=== PATIENT | female | born 1975 | race African-American/Black ===

== ENCOUNTER 2017-05-16 21:16 | Observation (INO) ==
--- NOTE | 2017-05-16 21:49 | Emergency Department Note ---
Arrival - Arrival Chief Complaint: Non-Specific Stated Complaint: JAW LOCKING UP/HEADACHE/CHEST TIGHTING ED Nursing Triage Note: Patient to triage with c/o "FORMAN and jaw locking up" that started around 1900. Patient also was having some chest tightness around 1830 and now upon arrival to triage patient is having left groin pain. Patient spend today mopping her house. Denies N/V/D or diaphoresis. Mode of Arrival: Ambulatory Time Seen by Provider: 05/16/17 21:31 - History of Present Illness HPI Narrative: This is a 42-year-old otherwise healthy female of descent who has been working mopping her floor throughout the day and presents with chest tightness which started approximately 630 this evening and episodes of jaw tightness. Her grandparents had heart disease and of myocardial infarction but her parents have not had any similar problems. The patient has had a hysterectomy. She denies any nausea vomiting nor diaphoresis. There is no shortness of breath. She has had no syncope hemoptysis nor palpitations. Date of Last Menstrual Period: [facility] Allergies/Adverse Reactions: Allergies Allergy/AdvReac Type Severity Reaction Status Date / Time hydrocodone [From Lortab] Allergy ITCHING Verified 05/16/17 21:27 Home Medications: Home Medications Medication Instructions Recorded Confirmed Type methylPREDNISolone DOSEPAK [Medrol 1 tablet PO DAILY 12/19/15 12/19/15 History Dosepak] Review of System - Review of System Constitutional: Absent: diaphoresis, fever, weakness Eyes: Absent: redness, vision change Head/Ears/Nose/Throat: Absent: earache, epistaxis Respiratory: Absent: cough, respiratory distress, wheezing Cardiovascular: Absent: dyspnea on exertion, orthopnea, syncope Gastrointestinal: Absent: nausea, vomiting, diarrhea Genitourinary female: Absent: dyspareunia, frequency Musculoskeletal: Absent: arthralgia, joint swelling Skin: Absent: lesions, change in hair/nails Neurological: Absent: headache, weakness Psychiatric: Absent: anxiety, depression Endocrine: Absent: heat intolerance, polydipsia Hematological/Lymphatic: Absent: easy bruising, lymphadenopathy Allergic/Immunologic: Absent: urticaria Medical,Surgical,& Family Hx - Surgical History Reproductive Surgeries: Surgical HX of;: Hysterectomy - Social History Smoking Status: Never smoker Frequency of Alcohol Use: None Type of Drug Use: None Exam Vital Signs: Vital Signs Temperature 97.5 F L 05/16/17 21:21 Pulse Rate 83 05/16/17 21:21 Respiratory Rate 18 05/16/17 21:21 Blood Pressure 132/86 05/16/17 21:21 O2 Sat by Pulse Oximetry 100 05/16/17 21:21 - General General appearance: alert - Eye Eye exam: Present: normal appearance, PERRL - ENT ENT exam: Present: normal exam - Neck Neck exam: Present: normal inspection - Chest Chest inspection: Present: normal inspection - Respiratory Respiratory exam: Present: normal lung sounds bilaterally - Cardiovascular Cardiovascular exam: Present: regular rate, normal rhythm - Abdominal Exam Abdominal exam: Present: soft, normal bowel sounds - Extremities Exam Extremities exam: Present: normal inspection - Back Exam Back exam: Present: normal inspection, full ROM. Absent: CVA tenderness (R), CVA tenderness (L) - Neurological Exam Neurological exam: Present: alert, oriented X3, CN II-XII intact - Psychiatric Psychiatric exam: Present: normal affect, normal mood - Skin Skin exam: Present: warm, dry
[2017-05-16] MEDS ORDERED: KETOROLAC 30 MG/1 ML VIAL IV STA (21:50)
[2017-05-16] MEDS ORDERED: KETOROLAC 30 MG/1 ML VIAL ONE (22:17)
[2017-05-16 22:26] LABS: Eosinophils # 0.1 10*3/uL (0.0-0.87); Eosinophils % 1.5 % (0.00-10.9); Hematocrit 27.2 VOL% (35.7-47.0); Hemoglobin 9.1 GM/DL (12.0-16.0); Immature Granulocytes % 0.2 %; Immature Granulocytes Absolute 0.01 #; Lymphocytes # 1.5 10*3/uL (1.4-4.0); Lymphocytes % 37.1 % (21.3-54.2); Mean Corpuscular HGB Conc 33.5 GM/DL (32-36); Mean Corpuscular Hemoglobin 27 PG (27-34); Mean Platelet Volume 10.3 FL (9.6-12.0); Monocytes # 0.3 10*3/uL (0.11-0.8); Monocytes % 8.4 % (1.7-12.7); Neutrophils # 2.2 10*3/uL (1.4-7.4); Neutrophils % 52.8 % (38.7-73.9); Platelet Count 215 T/CUMM (130-400); Red Blood Count 3.36 MC/CUMM (3.8-5.5); Red Cell Distribution Width 14.2 % (9.3-17.3); White Blood Count 4.1 T/CUMM (4-12)
[2017-05-16 22:48] LABS: Alanine Aminotransferase 17 U/L (13-56); Albumin 3.6 G/DL (3.4-5.0); Alkaline Phosphatase 53 U/L (45-117); Aspartate Amino Transferase 18 U/L (0-37); Bilirubin,Total < 0.39 MG/DL (0.2-1.0); Blood Urea Nitrogen 14 MG/DL (7-18); Calcium 8.6 MG/DL (8.5-10.1); Glucose 112 MG/DL (74-106); Osmolality,Calculated 282.3 MOS/KG (273-304); Potassium 3.2 MMOL/L (3.5-5.1); Sodium 141 MMOL/L (136-145); Total Protein 7.2 G/DL (6.4-8.3)
--- NOTE | 2017-05-17 | Hospitalist History & Physical ---
Assessment and Plan (1) Elevated troponin Status: Acute Assessment and plan: No obvious explanation for this, worth ruling out ACS with serial troponin and telemetry monitoring. Hydrate with IV fluids Current Visit: Yes (2) Chest pain Status: Acute Assessment and plan: Favored that this represents a panic attack, she has low pretest probability but the elevated troponin without an alternative explanation suggest that trending is indicated Current Visit: Yes (3) Jaw pain Status: Acute Assessment and plan: In the context of hypokalemia and this could be muscle spasm, replace potassium Current Visit: Yes (4) Hypokalemia Status: Acute Assessment and plan: Replace potassium orally Current Visit: Yes History of Present Illness Chief complaint: Chest pain History of present illness: Ms. Guajardo is a 42 year old female with no significant past medical history the presented with a chief complaint of chest pain. Onset sudden. Duration 5 hours. Location central chest. Quality "squeezing." Associated with shortness of breath, panicked feeling, bilateral jaw pain and headache. No associated diaphoresis, nausea. She also endorsed dizziness without syncope or near syncope. No recent illness or sick contacts. She experienced the symptoms for about an hour before they improved. She still has the pain in her drawls but no chest pain at this time. Toradol given in the emergency department led to no relief. She has never had chest pain at this sort before although she does endorse having panic attacks in the past. She does not smoke and has no first-degree relatives with heart disease. I have reviewed the workup performed in the emergency department including lab and imaging data I discussed her case emergency department providers. Home Medications Medication Instructions Recorded Confirmed Type methylPREDNISolone DOSEPAK [Medrol 1 tablet PO DAILY 12/19/15 12/19/15 History Dosepak] Allergies Allergy/AdvReac Type Severity Reaction Status Date / Time hydrocodone [From Lortab] Allergy ITCHING Verified 05/16/17 21:27 Medical,Surgical,& Family Hx - Medical History Cardio: No history of: CAD, Hypertension Endocrine: No history of: Diabetes Mellitus (IDDM), Diabetes Mellitus (NIDDM) - Surgical History Reproductive Surgeries: Surgical HX of;: Hysterectomy - Family History Family History: Reports;: Family Heart Disease (Grandparents) - Social History Smoking Status: Never smoker Have you smoked in the last 12 months: No Frequency of Alcohol Use: None Type of Drug Use: None Marital Status: Lives With:: Spouse Functional capacity: independent ambulation Review of systems: - Constitutional Constitutional: Absent: [chills, fatigue, fever(s), night sweats, weight loss] - EENT Eyes: Absent:[ blurry vision] Ears: Absent: [decreased hearing, ear pain] Nose, mouth and throat: Present: Jaw pain absent: [nasal congestion, sore throat ] - Cardiovascular Cardiovascular: Present: Intermittent squeezing chest pain absent[:dyspnea on exertion, edema, orthopnea, palpitations] - Respiratory Respiratory: Absent: [cough, dyspnea, hemoptysis] - Gastrointestinal Gastrointestinal: Absent: [abdominal pain, constipation, diarrhea, dysphagia, hematemesis, hematochezia, melena, nausea, vomiting] - Genitourinary Genitourinary: Absent: [difficulty urinating, dysuria, hematuria] - Musculoskeletal Musculoskeletal: Absent:[ arthralgias, joint swelling, myalgias] - Neurological Neurological: Present: Intermittent dizziness absent: [confusion, focal weakness , headache(s), numbness, paresthesias, syncope] - Psychiatric Psychiatric: Absent:[ anxiety, depression] - Endocrine Endocrine: Absent: [cold intolerance, heat intolerance, polydipsia, polyuria] - Hematologic/Lymphatic Hematologic/Lymphatic: Absent: [easy bleeding, easy bruising, lymphadenopathy] Exam - Constitutional Vitals: Period Temp Pulse Resp BP Sys/Marte Pulse Ox Last 24 Hr 97.5 F-97.5 F 83-83 18-18 132-132/86-86 100 General appearance: normal weight Exam: - Eye Eye exam: Present: EOMI. Absent: conjunctival injection, scleral icterus Pupils: Present: DAMION - ENT ENT exam: Present: normal external ear exam, normal oropharynx - Expanded ENT Exam Mouth exam: Present: moist, normal dentition - Neck Neck exam: Present: normal inspection. Absent: lymphadenopathy, thyromegaly - Respiratory Respiratory exam: Present: clear to auscultation bilaterally. Absent: accessory muscle use, rales, rhonchi, wheezes - Cardiovascular Cardiovascular exam: Present: regular rate and rhythm. Absent: diastolic murmur , systolic murmur - Expanded Cardiovascular Exam Peripheral pulses: 2+: posterior tibialis (L), posterior tibialis (R) - GI/Abdominal GI/Abdominal exam: Present: normal bowel sounds, soft. Absent: distended, hyperactive bowel sounds, hypoactive bowel sounds, organomegaly, tenderness, rebound - Extremities Exam Extremities exam: Absent: edema - Neurological Exam Neurological exam: Present: alert, oriented X3, CN II-XII intact. Absent: motor sensory deficit - Psychiatric Psychiatric exam: Present: normal affect - Skin Skin exam: Present: warm, dry. Absent: diaphoretic, rash Results - Labs CBC & BMP: 05/16/17 22:20 05/16/17 22:20 - EKG EKG results: normal axis, normal QRS (Nonspecific T-wave changes) EKG shows: sinus rhythm - Diagnostic Findings Procedure: Chest x-ray: report reviewed by me
[2017-05-17] MEDS ORDERED: SODIUM CHLORIDE 0.45% 1,000 ML IV SCH (01:07)
[2017-05-17] MEDS ORDERED: NITROGLYCERIN SL 0.4 MG TABLET SL PRN (01:07)
[2017-05-17] MEDS ORDERED: ACETAMINOPHEN 325 MG TABLET PO PRN (01:07)
[2017-05-17] MEDS ORDERED: POTASSIUM CHLORIDE 20 MEQ TABLET PO PRN (01:07)
--- NOTE | 2017-05-17 02:02 | EKG Report ---
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
[2017-05-17 05:49] LABS: Calcium 8.5 MG/DL (8.5-10.1); Osmolality,Calculated 279.3 MOS/KG (273-304); Potassium 3.6 MMOL/L (3.5-5.1)
--- NOTE | 2017-05-17 06:48 | EKG Report ---
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
--- NOTE | 2017-05-17 06:58 | EKG Report ---
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
[2017-05-17 07:48] VITALS: BP 143/82
--- NOTE | 2017-05-17 07:49 | EKG Report ---
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
--- NOTE | 2017-05-17 08:29 | Hospitalist Progress Note ---
Assessment and Plan - Time spent with patient Time spent with patient: Less than 30 minutes (1) Chest pain Status: Acute Assessment and plan: Patient is admitted with chest pain and elevated troponin which is been essentially stable on serial measures. She is been treated medically and cardiology has been consulted for their opinion. Current Visit: Yes (2) Elevated troponin Status: Acute Assessment and plan: As noted above. Current Visit: Yes (3) Hypokalemia Status: Acute Assessment and plan: Potassium is within normal limits at this time after receiving replacement therapy. Current Visit: Yes Hospitalist: Subjective Interval history: Chart is been reviewed and patient examined. 42-year-old female states that yesterday she noted some shortness of breath later followed by squeezing tightness across her chest and heart with tightness involving her jaw. She developed a severe headache and had red eyes and urinated on herself. She came to the emergency room for evaluation and was admitted for continued observation. She is currently pain-free and having no complaints. Exam - Constitutional Vitals: Period Temp Pulse Resp BP Sys/Marte Pulse Ox Last 24 Hr 97 F-97.5 F 63-83 18-18 132-143/82-86 100-100 General appearance: no acute distress - Head Head exam: Present: normocephalic, atraumatic - Eye Eye exam: Present: EOMI Pupils: Present: DAMION - ENT ENT exam: Present: normal exam - Neck Neck exam: Present: normal inspection - Respiratory Respiratory exam: Present: clear to auscultation bilaterally - Cardiovascular Cardiovascular exam: Present: regular rate and rhythm - GI/Abdominal GI/Abdominal exam: Present: normal bowel sounds, soft. Absent: mass, tenderness , rebound - Extremities Exam Extremities exam: Absent: calf tenderness, edema - Neurological Exam Neurological exam: Present: alert, oriented X3, CN II-XII intact. Absent: motor sensory deficit - Psychiatric Psychiatric exam: Present: normal affect, normal mood. Absent: agitated, anxious - Skin Skin exam: Present: warm, dry. Absent: erythema Results - Labs CBC & BMP: 05/16/17 22:20 05/17/17 05:03 Lab Results: I have reviewed the past 24 hour labs - EKG EKG shows: sinus rhythm - Diagnostic Findings Procedure: Chest x-ray: image reviewed by me Quality Measures - VTE Contraindication to Pharmacological VTE Prophylaxis: Clinical assessment deems Pt at low risk, no prophalaxis needed
--- NOTE | 2017-05-17 08:54 | Cardiology Consult Note ---
Assessment and Plan (1) Elevated troponin Status: Acute Assessment and plan: This elevation is flat and trivial. Certainly not diagnostic of acute ischemic event. Current Visit: Yes (2) Chest pain Status: Acute Assessment and plan: Chest pain may very muscle skeletal by a stone exam. Certainly her ECG does not reveal any ischemic changes and her troponin elevation is trivial and flat. There is certainly very atypical aspects to this event. As noted she has chest wall tenderness. She is also a low risk patient for coronary disease based on her history. This certainly does not initially appear to be cardiac in nature. She could be evaluated with cardiac perfusion study as an outpatient. I will order this for in the morning unless she is discharged and this can be arranged as an outpatient. Current Visit: Yes (3) Jaw pain Status: Acute Assessment and plan: This certainly may be related to her present symptomatology. Etiology is not clear. Current Visit: Yes (4) Hypokalemia Status: Acute Assessment and plan: This apparently is resolved at this time. Current Visit: Yes History of Present Illness - Data of Consult Patient: new to practice Consult date: 05/17/17 Requesting Physician: Hugh Thakur - Consult Narrative Reason for consult: Chest pain History of present illness: History is obtained from the patient and is fair to good. Ms. Guajardo is a 42 year old female who was admitted with an episode of 1-2 hours of chest pain. She states this pain started on fairly abrupt. She described a squeezing sensation may felt a little short of breath may be a little worse with deep breath. She has some jaw discomfort developed a severe headache and in fact urinated on herself. She was told by her family that her eyes were bloodshot and she is acting like she was on drugs. She denied any diaphoresis nausea or other symptomatology. She had no syncope near syncope but did feel weak. She was admitted to the hospital where she is being evaluated. The patient ECG normal sinus rhythm without any ischemic changes. The patient's cardiac enzymes with flat troponins and trivially increased at 0.061-0.065. Her potassium initially at 3.2 but is normalized to 3.6 this morning. She does have noted chest wall tenderness on exam. She has had no symptomatology since being admitted. She has a lot of vague issues and complaints of neck pain and arm pains that are chronic hematoma that she has neck problems. These are not associated with any kind of physical activity or exertion. She has had no limitation of physical activity in regard to any symptomatology from a cardiac standpoint. She has no prior history of cardiac disease and has no risk factors for coronary disease and has no first-degree relatives with coronary disease. This patient certainly is at low risk for coronary artery disease and so her symptomatology certainly may be of question she certainly has no objective findings. She does have chest wall tenderness is noted in noted in exam. This patient would probably benefit from a stress test but this could probably be done as an outpatient. The patient has been up and ambulating without limitations or issues. CC: Swetha Reid - Home Medications and Allergies Home Medications: Home Medications Medication Instructions Recorded Confirmed Type methylPREDNISolone DOSEPAK [Medrol 1 tablet PO DAILY 12/19/15 12/19/15 History Dosepak] Allergies/Adverse Reactions: Allergies Allergy/AdvReac Type Severity Reaction Status Date / Time hydrocodone [From Lortab] Allergy ITCHING Verified 05/16/17 21:27 Review of systems: Constitutional: Denies anorexia, chills, fatigue, fever, frequent falls, night sweats, weight gain, weight loss Eyes: Denies visual changes or loss of vision Ears: Denies decreased hearing, vertigo Nose, mouth and throat: Denies dysphagia, epistaxis, headaches, neck pain, tongue swelling, Neck: Denies thyromegaly or masses. No stiffness. She has complained of previous neck pains that would be muscle skeletal in nature. Cardiovascular: as per HPI Respiratory: Denies cough, dyspnea, hemoptysis, dyspnea on exertion, wheezing, snoring Gastrointestinal: Denies abdominal pain, constipation, dyspepsia, dysphagia, hematemesis, hematochezia, melena, nausea, vomiting Genitourinary: Denies dysuria, hematuria, nocturia Musculoskeletal: Denies arthralgias, joint swelling, muscle weakness, myalgias Neurological: denies abnormal gait, abnormal speech, confusion, convulsions, frequent falls, headaches, memory loss, syncope Psychiatric: Denies anxiety, confusion, depression Endocrine: Denies cold intolerance, fatigue, heat intolerance Hematologic/Lymphatic: Denies easy bleeding, easy bruising Dermatologic: Denies Rash, itching, shingles Medical,Surgical,& Family Hx - Medical History Cardio: No history of: CAD, Hypertension Endocrine: No history of: Diabetes Mellitus (IDDM), Diabetes Mellitus (NIDDM) - Surgical History Cardiac Surgeries: Patient Denies: Cardiac Catheterization Thoracic Surgeries: Patient denies;: Lobectomy Neurologic Surgeries: Patient denies: Neurologic Surgery Abdominal Surgeries: Patient denies: Abdominal Surgery Reproductive Surgeries: Surgical HX of;: Hysterectomy - Family History Family History: Reports;: Family Heart Disease (Grandparents) - Social History Smoking Status: Never smoker Frequency of Alcohol Use: None Type of Drug Use: None Physical Examination Vital Signs Temp Pulse Resp BP Pulse Ox 97.5 F L 83 18 132/86 100 05/16/17 21:21 05/16/17 21:21 05/16/17 21:21 05/16/17 21:21 05/16/17 21:21 Exam: General appearance: normal weight, no acute distress Head exam: normal inspection, atraumatic Eye exam: Pupils are equal and reactive. EOMI. There is no trauma. Ear exam: Anatomically normal. Normal auditory acuity to conversation. Oral exam: No significant oral lesions. Neck exam: normal inspection no JVD. No carotid bruit. Trachea is in midline. Respiratory exam: clear to auscultation bilaterally posteriorly and anteriorly with good air movement. No rales, rhonchi or wheezes. Cardiovascular exam: regular rate and rhythm, no murmur or gallop or rub. No precordial lift. No bruits over the major arteries. Chest wall/torso: Anatomically normal. Chest wall tenderness to palpation across the anterior chest in the area that she complained of pain. This reproduces her pain to some degree. Peripheral Pulses: 2+ throughout. GI/Abdominal exam: normal bowel sounds, soft and nontender, no abdominal bruits or pulsatile masses. Musculoskeletal/Extremities exam: normal inspection without edema or cyanosis. No deformities or trauma. Neurological exam: alert, oriented X3. There is no gross neurologic deficits. Psychiatric exam: normal affect, normal mood. Cognitive function is grossly intact. Skin exam: normal color, warm. No rashes or other skin lesions. Result/EKG - Labs CBC & BMP: 05/16/17 22:20 05/17/17 05:03 Lab Results: I have reviewed the past 24 hour labs Labs: Laboratory Results - last 24 hr 05/16/17 05/16/17 05/16/17 22:20 22:20 22:20 WBC 4.1 RBC 3.36 L Hgb 9.1 L Hct 27.2 L MCV 81.0 L MCH 27 MCHC 33.5 RDW 14.2 Plt Count 215 MPV 10.3 Neut % (Auto) 52.8 Lymph % (Auto) 37.1 Stokes % (Auto) 8.4 Eos % (Auto) 1.5 Baso % (Auto) 0.0 Neut # (Auto) 2.2 Lymph # (Auto) 1.5 Stokes # (Auto) 0.3 Eos # (Auto) 0.1 Baso # (Auto) 0.0 Immature Gran % 0.2 Nucleated RBC % 0.0 Immature Gran # 0.01 Nucleated RBCs # 0.00 Immature Plt Fraction 0.0 Sodium 141 Potassium 3.2 L Chloride 105 Carbon Dioxide 28 Anion Gap 11.2 BUN 14 Creatinine 0.70 GFR Calculation 115 BUN/Creatinine Ratio 20.00 Glucose 112 H Calculated Osmolality 282.3 Calcium 8.6 Total Bilirubin < 0.39 AST 18 ALT 17 Alkaline Phosphatase 53 Troponin I 0.065 H Total Protein 7.2 Albumin 3.6 Globulin 3.6 H Albumin/Globulin Ratio 1.0 L 05/17/17 05/17/17 05/17/17 02:11 05:03 05:03 WBC RBC Hgb Hct MCV MCH MCHC RDW Plt Count MPV Neut % (Auto) Lymph % (Auto) Stokes % (Auto) Eos % (Auto) Baso % (Auto) Neut # (Auto) Lymph # (Auto) Stokes # (Auto) Eos # (Auto) Baso # (Auto) Immature Gran % Nucleated RBC % Immature Gran # Nucleated RBCs # Immature Plt Fraction Sodium 141 Potassium 3.6 Chloride 106 Carbon Dioxide 29 Anion Gap 9.6 BUN 12 Creatinine 0.70 GFR Calculation 115 BUN/Creatinine Ratio 17.00 Glucose 89 Calculated Osmolality 279.3 Calcium 8.5 Total Bilirubin AST ALT Alkaline Phosphatase Troponin I 0.064 H 0.061 H Total Protein Albumin Globulin Albumin/Globulin Ratio - Impressions Impressions: ECG normal sinus rhythm and overall unremarkable without acute changes. Quality Measures - VTE Contraindication to Pharmacological VTE Prophylaxis: Clinical assessment deems Pt at low risk, no prophalaxis needed
--- NOTE | 2017-05-17 09:58 | Discharge Summary ---
Hospital Course - Hospital Course Hospital Course: This is a 42-year-old -[place] female who presented last evening with complaints of sudden substernal chest discomfort which was a tightness with involved tightness of her jaw with some mild shortness of breath but no diaphoresis or nausea. She had mildly elevated troponin which was stable throughout her stay and she had no EKG changes. Cardiology was consulted and felt that she was low risk for cardiac event and could be discharged home with outpatient follow-up. She will be discharged today and follow-up outpatient stress study with subsequent follow-up with Dr. Yan. - Time spent with patient Time with patient DS: Less than 30 minutes Diagnosis - Discharge Diagnosis (1) Chest pain Status: Acute (2) Elevated troponin Status: Acute (3) Hypokalemia Status: Acute Discharge Plan - Discharge Data Disposition: Disch To Home/Self Care Condition at Discharge: Stable Discharge Diet: advance to your usual diet Activity: resume usual activities as tolerated Contact your physician if you experience:: fever over 101, Redness or swelling, Nausea/Vomiting, Shortness of breath - Discharge Medications New Aspirin EC Tab 81 mg PO DAILY #30 tablet Continue methylPREDNISolone DOSEPAK [Medrol Dosepak] 1 tablet PO DAILY - Follow Up or Referral Follow Up: Hugh Yan MD [Physician] - 3 Days - Forms/Instructions Additional Discharge Instructions: Please schedule nuclear medicine stress study at cardiovascular [place] [facility] the [facility] within the next 48-72 hours with subsequent follow-up with Dr. Yan Exam - Constitutional Vitals: Period Temp Pulse Resp BP Sys/Marte Pulse Ox Last 24 Hr 97 F-97.5 F 63-83 18-18 132-143/82-86 100-100 General appearance: no acute distress - Head Head exam: Present: normocephalic, atraumatic - Eye Eye exam: Present: EOMI Pupils: Present: DAMION - ENT ENT exam: Present: normal exam - Neck Neck exam: Present: normal inspection - Respiratory Respiratory exam: Present: clear to auscultation bilaterally - Cardiovascular Cardiovascular exam: Present: regular rate and rhythm - GI/Abdominal GI/Abdominal exam: Present: normal bowel sounds, soft. Absent: tenderness, rebound - Extremities Exam Extremities exam: Absent: calf tenderness, edema - Back Exam Back exam: Present: normal inspection - Neurological Exam Neurological exam: Present: alert, oriented X3, CN II-XII intact. Absent: motor sensory deficit - Psychiatric Psychiatric exam: Present: normal affect, normal mood. Absent: agitated, anxious - Skin Skin exam: Present: warm, dry. Absent: erythema Discharge Results Procedures and tests throughout hospitalization: Pending Orders 05/16/17 21:51 XR chest 2V Stat 05/18/17 04:00 NM jennifer perf SPECT rest or str IN AM Labs on day of discharge: Labs from last 24 hours 05/17/17 05/17/17 05/17/17 05:03 05:03 02:11 WBC RBC Hgb Hct MCV MCH MCHC RDW Plt Count MPV Neut % (Auto) Lymph % (Auto) [place] % (Auto) Eos % (Auto) Baso % (Auto) Neut # (Auto) Lymph # (Auto) [place] # (Auto) Eos # (Auto) Baso # (Auto) Immature Gran % Nucleated RBC % Immature Gran # Nucleated RBCs # Immature Plt Fraction Sodium 141 Potassium 3.6 Chloride 106 Carbon Dioxide 29 Anion Gap 9.6 BUN 12 Creatinine 0.70 GFR Calculation 115 BUN/Creatinine Ratio 17.00 Glucose 89 Calculated Osmolality 279.3 Calcium 8.5 Total Bilirubin AST ALT Alkaline Phosphatase Troponin I 0.061 H 0.064 H Total Protein Albumin Globulin Albumin/Globulin Ratio 05/16/17 05/16/17 05/16/17 22:20 22:20 22:20 WBC 4.1 RBC 3.36 L Hgb 9.1 L Hct 27.2 L MCV 81.0 L MCH 27 MCHC 33.5 RDW 14.2 Plt Count 215 MPV 10.3 Neut % (Auto) 52.8 Lymph % (Auto) 37.1 [place] % (Auto) 8.4 Eos % (Auto) 1.5 Baso % (Auto) 0.0 Neut # (Auto) 2.2 Lymph # (Auto) 1.5 [place] # (Auto) 0.3 Eos # (Auto) 0.1 Baso # (Auto) 0.0 Immature Gran % 0.2 Nucleated RBC % 0.0 Immature Gran # 0.01 Nucleated RBCs # 0.00 Immature Plt Fraction 0.0 Sodium 141 Potassium 3.2 L Chloride 105 Carbon Dioxide 28 Anion Gap 11.2 BUN 14 Creatinine 0.70 GFR Calculation 115 BUN/Creatinine Ratio 20.00 Glucose 112 H Calculated Osmolality 282.3 Calcium 8.6 Total Bilirubin < 0.39 AST 18 ALT 17 Alkaline Phosphatase 53 Troponin I 0.065 H Total Protein 7.2 Albumin 3.6 Globulin 3.6 H Albumin/Globulin Ratio 1.0 L DS: Provider Date of admission: 05/16/17 23:51 Primary care physician: . No PCP Attending physician on admission: Hugh Thakur MD Consults: 05/17/17 08:15 Consult to Physician [CONS] Routine Comment: Consulting Provider: Cardiology - [facility] Person Notified: Dr. Yan Date Notified: 05/17/17 Time Notified: 08:26 Consult Notification Comment: Physician on floor, notified verbally. Discharging clinician: Swetha Reid Expected date of discharge: 05/17/17
--- NOTE | 2017-05-17 10:05 | XRay Report ---
XR chest 2V Date: 05/16/2017 9:51 PM History: Chest pain Comparison: None Technique: PA and lateral chest Findings: The heart is normal in size. The lungs are clear with unremarkable mediastinum and osseous structures. Impression: No acute cardiopulmonary pathology identified. PROCEDURE INTERPRETED AT [facility] DEPARTMENT OF RADIOLOGY Final Report Signed by: Dr. Liz Loera
== END 2017-05-17 11:08 | disposition home or self-care (01) ==
LOC: N.ED 21:16 → N.EDINP 21:16 → SUATTDRO 23:51 → N.TELEN 05-17 00:46
PROVIDERS: ADMIT Student in an Organized Health Care Education/Training Program; ATTEND Hospitalist

== ENCOUNTER 2020-12-03 06:58 | Observation (INO) ==
[2020-12-03] MEDS ORDERED: ASPIRIN 325 MG TABLET PO STA (07:13)
[2020-12-03 07:44] LABS: Eosinophils # 0.1 10*3/uL (0.0-0.87); Eosinophils % 1.9 % (0.00-10.9); Hematocrit 33.2 VOL% (35.7-47.0); Immature Granulocytes % 0.3 %; Immature Granulocytes Absolute 0.01 #; Lymphocytes # 1.2 10*3/uL (1.4-4.0); Lymphocytes % 36.9 % (21.3-54.2); Mean Corpuscular HGB Conc 33.1 GM/DL (32-36); Mean Corpuscular Volume 89.7 FL (87-102); Mean Platelet Volume 10.7 FL (9.6-12.0); Monocytes % 7.9 % (1.7-12.7); Platelet Count 192 T/CUMM (130-400); Red Cell Distribution Width 11.5 % (9.3-17.3); White Blood Count 3.2 T/CUMM (4-12)
[2020-12-03 07:55] LABS: Albumin 3.6 G/DL (3.4-5.0); Bilirubin,Total 0.4 MG/DL (0.2-1.0); Calcium 8.6 MG/DL (8.5-10.1); Osmolality,Calculated 280.3 MOS/KG (273-304); Potassium 3.7 MMOL/L (3.5-5.1); Total Protein 7.2 G/DL (6.4-8.3)
[2020-12-03 08:08] LABS: Hypochromasia 1+; Microcytosis 1+; Platelet Estimate Adequate
[2020-12-03 08:38] LABS: Barbiturates Screen,Urine Negative (Negative); Benzodiazepines Screen,Urine Negative (Negative); Cannabinoid Screen,Urine Negative (Negative); Opiate Screen,Urine Negative (Negative); Phencyclidine Screen,Urine Negative (Negative)
[2020-12-03] MEDS ORDERED: ONDANSETRON 4 MG/2 ML VIAL IV PRN (11:18)
[2020-12-03] MEDS ORDERED: MAGNESIUM SULF RIDER 4 GM in PREMIX 1 EACH IV PRN (11:18)
[2020-12-03] MEDS ORDERED: ACETAMINOPHEN 325 MG TABLET PO PRN (11:18)
[2020-12-03] MEDS ORDERED: GLUCAGON 1 MG VIAL IM PRN (11:18)
[2020-12-03] MEDS ORDERED: POTASSIUM CHLORIDE 20 MEQ TABLET PO PRN ×2 (11:18)
[2020-12-03] MEDS ORDERED: BISACODYL 5 MG TABLET PO PRN (11:18)
[2020-12-03] MEDS ORDERED: MAGNESIUM SULF RIDER 2 GM in PREMIX 1 EACH IV PRN (11:18)
[2020-12-03] MEDS ORDERED: DEXTROSE 50% 25 GM/50 ML VIAL IV PRN (11:18)
[2020-12-03] MEDS: PANTOPRAZOLE 40 MG TABLET PO SCH (12:05)
[2020-12-03] MEDS: ENOXAPARIN 40 MG/0.4 ML SYRINGE SUBCUT SCH (12:06)
[2020-12-03] MEDS ORDERED: KETOROLAC 30 MG/1 ML VIAL IV ONE (14:14)
[2020-12-03] MEDS ORDERED: amLODIPine 5 MG TABLET PO SCH (14:32)
[2020-12-03] MEDS: carvediloL 6.25 MG TABLET PO SCH ×2 (15:29→21:13)
[2020-12-03] MEDS ORDERED: carvediloL 3.125 MG TABLET PO SCH (21:00)
[2020-12-03] MEDS ORDERED: CYCLOBENZAPRINE 10 MG TABLET PO SCH (21:00)
[2020-12-04 04:53] LABS: Calcium 8.7 MG/DL (8.5-10.1); Osmolality,Calculated 282.3 MOS/KG (273-304); Potassium 4.1 MMOL/L (3.5-5.1)
[2020-12-04] MEDS ORDERED: ASPIRIN EC 81 MG TABLET PO SCH (09:00)
[2020-12-04 09:04] VITALS: BP 130/79
[2020-12-04] MEDS: carvediloL 6.25 MG TABLET PO SCH (09:19)
[2020-12-04] MEDS: PANTOPRAZOLE 40 MG TABLET PO SCH (09:19)
[2020-12-04 10:53] LABS: VLDL CHOLESTEROL 14.6 MG/DL
[2020-12-04 10:54] LABS: Risk Ratio 4.28
[2020-12-04] MEDS: ENOXAPARIN 40 MG/0.4 ML SYRINGE SUBCUT SCH (11:47)
== END 2020-12-04 12:01 | disposition home or self-care (01) ==
LOC: EDUNIT# → EDBD → N.ED 06:58 → N.EDINP 06:58 → N.TELES 13:16
PROVIDERS: ADMIT Internal Medicine; ATTEND Internal Medicine